=== PATIENT | female | born 1940 | race Caucasian/White ===

== ENCOUNTER 2024-06-28 07:55 | Observation (INO) | payer MEDICARE ==
[2024-06-28 08:29] LABS: #Basophils Less than 0.03 10x3/uL (0.0-0.2); %Basophils 0.4 % (0.0-1.0); %Eosinophils 2.9 % (0.0-10.0); %Lymphocytes 26.4 % (21.0-51.0); %Monocytes 7.9 % (0.0-10.0); %Neutrophils 62.2 % (42.0-75.0); Hematocrit 41.5 % (36.0-47.0); Hemoglobin 14.1 g/dL (12.0-16.0); Mean Corpuscular Volume 94.3 fL (78.0-98.0); Mean Platelet Volume 11.1 fL (7.4-10.4); Platelet Count 181 10x3/uL (130-400); RBC Distribution Width 12.4 % (11.5-14.5)
[2024-06-28 08:45] LABS: Prothrombin Time 12.7 sec (12.0-14.7)
[2024-06-28 09:00] LABS: Troponin I Less than 0.010 ng/mL (< 0.028)
[2024-06-28 09:13] LABS: PTT 20.9 sec (22.9-36.1)
[2024-06-28 09:44] LABS: ALT (SGPT) 16 U/L (8-55); AST (SGOT) 18 U/L (5-34); Albumin 3.1 g/dL (3.4-4.8); Alkaline Phosphatase 84 U/L (40-110); Anion Gap 11 mmol/L (10-20); BUN (Urea Nitrogen) 11 mg/dL (9.8-20.1); Bilirubin, Total 0.4 mg/dL (0.2-1.2); Calc. Creatinine Clearance 0 mL/min (70-130); Calcium 8.4 mg/dL (7.8-10.44); Carbon Dioxide 21 mmol/L (23-31); Chloride 104 mmol/L (98-107); Estimated GFR 68; Glucose 95 mg/dL (83-110); Potassium 3.8 mmol/L (3.5-5.1); Protein, Total 7.1 g/dL (5.8-8.1); Sodium 132 mmol/L (136-145)
[2024-06-28] MEDS ORDERED: Aspirin Chewable 81 MG TAB ONE (10:33)
[2024-06-28] MEDS ORDERED: Dextrose 50% Abboject 50 ML SYRINGE SLOW IVP PRN (12:33)
[2024-06-28] MEDS ORDERED: Glucagon 1 MG/ML KIT IM PRN (12:33)
[2024-06-28] MEDS ORDERED: Insulin Lispro 100 UNIT/ML 10 ML VIAL SC PRN ×2 (12:33)
[2024-06-28] MEDS ORDERED: Dextrose 5% in Water 1,000 ML IV PRN (12:33)
[2024-06-28] MEDS ORDERED: Iopamidol-370 76% 500 ML MDV (1 ML CHARGE) ONE (12:42)
[2024-06-28] MEDS ORDERED: Diazepam 2 MG TAB ONE (12:46)
[2024-06-28 13:17] LABS: Hemoglobin A1c 5.4 % (4.0-6.0)
[2024-06-28] MEDS: Diazepam 2 MG TAB PO SCH (13:41)
[2024-06-28] MEDS: Pyridostigmine Bromide IR 60 MG TAB PO SCH (16:36)
[2024-06-28] MEDS ORDERED: Senokot 8.6 MG TAB PO PRN (17:22)
[2024-06-28] MEDS: Polyethylene Glycol 3350 17 GM Packet PO SCH (18:21)
[2024-06-28] MEDS: Azelastine 137 MCG/NASAL Spray 30 ML NS SCH (21:17)
[2024-06-28] MEDS: Fluticasone Propionate Nasal Spray 16 gm Bottle NASAL SCH (21:17)
[2024-06-28] MEDS: Ketotifen 0.035% Ophth Soln 5 ml Bottle EA EYE SCH (21:18)
[2024-06-29] MEDS: Melatonin 3 MG TAB PO SCH (01:50)
[2024-06-29 04:16] LABS: #Basophils Less than 0.03 10x3/uL (0.0-0.2); %Basophils 0.4 % (0.0-1.0); %Eosinophils 4.1 % (0.0-10.0); %Lymphocytes 25.8 % (21.0-51.0); %Monocytes 9.3 % (0.0-10.0); %Neutrophils 60.2 % (42.0-75.0); Hematocrit 40.5 % (36.0-47.0); Hemoglobin 13.7 g/dL (12.0-16.0); Mean Corpuscular HGB CONC 33.8 g/dL (32.0-36.0); Mean Corpuscular Hemoglobin 31.7 pg (27.0-31.0); Mean Corpuscular Volume 93.8 fL (78.0-98.0); Mean Platelet Volume 11.2 fL (7.4-10.4); Platelet Count 160 10x3/uL (130-400); RBC Distribution Width 12.4 % (11.5-14.5); Red Blood Cell (RBC) Count 4.32 mill/uL (4.20-5.40)
[2024-06-29 04:50] LABS: Anion Gap 14 mmol/L (10-20); BUN (Urea Nitrogen) 10 mg/dL (9.8-20.1); Calc. Creatinine Clearance 62 mL/min (70-130); Calcium 8.8 mg/dL (7.8-10.44); Carbon Dioxide 22 mmol/L (23-31); Cardiac Risk 2.9 (Less than 4.5); Chloride 107 mmol/L (98-107); Cholesterol 151 mg/dl (< 200 Desired); Estimated GFR 70; Glucose 101 mg/dL (83-110); HDL Cholesterol 52 mg/dL (>60 Neg Risk); LDL Cholesterol, Calculated 79 mg/dL; Potassium 3.6 mmol/L (3.5-5.1); Sodium 139 mmol/L (136-145); Triglycerides 102 mg/dL (Less than 150)
[2024-06-29] MEDS: Diazepam 5 MG TAB PO PRN (06:17)
[2024-06-29] MEDS: Levothyroxine Sodium 75 MCG TAB PO SCH (06:17)
[2024-06-29] MEDS ORDERED: Venlafaxine XR 37.5 MG CAP PO SCH (09:00)
[2024-06-29] MEDS: Pantoprazole DR 40 MG TAB PO SCH (09:38)
[2024-06-29] MEDS: Aspirin Chewable 81 MG TAB PO SCH (09:38)
[2024-06-29] MEDS: Montelukast Sodium 10 mg Tablet PO SCH (09:39)
[2024-06-29] MEDS: Polyethylene Glycol 3350 17 GM Packet PO SCH (09:40)
[2024-06-29] MEDS: Mirtazapine 15 MG TAB PO SCH (09:40)
[2024-06-29] MEDS: Venlafaxine 75 MG TAB PO SCH (09:41)
[2024-06-29] MEDS: Enoxaparin 40 MG (0.4 mL) SYRINGE SC SCH (09:42)
[2024-06-29 09:46] VITALS: BMI 31.1
[2024-06-29] MEDS ORDERED: hydrOXYzine 25 MG TAB PO PRN (11:23)
[2024-06-29] MEDS ORDERED: GUAIFENESIN SF SOLN 200 MG/10 ML UDCUP PO PRN (11:29)
[2024-06-29] MEDS: hydrOXYzine 25 MG TAB PO SCH (12:27)
[2024-06-29] MEDS: Meclizine HCl 12.5 MG TAB PO SCH (12:28)
[2024-06-29 16:38] VITALS: BP 114/72; TEMP 98
== END 2024-06-29 17:51 ==
LOC: ERS 07:55 → ERHOLD 11:12 → 2SE 15:56
PROVIDERS: ADMIT Student in an Organized Health Care Education/Training Program; ATTEND Student in an Organized Health Care Education/Training Program
DX: H81.10 Benign paroxysmal vertigo, unspecified ear (principal); G70.00 Myasthenia gravis without (acute) exacerbation; F41.9 Anxiety disorder, unspecified; F32.A Depression, unspecified; J45.909 Unspecified asthma, uncomplicated; E03.9 Hypothyroidism, unspecified; Z79.899 Other long term (current) drug therapy; E87.1 Hypo-osmolality and hyponatremia; Z79.890 Hormone replacement therapy; Z96.659 Presence of unspecified artificial knee joint; Z98.890 Other specified postprocedural states; H53.8 Other visual disturbances
CPT/HCPCS: 0042T; 70450; 70496; 70498; 70551; 71045; 80048; 80061; 82962 ×2; 83036; 84484; 85025; 85610; 85730; 93005; 96372; 97116; 97530; 99285; G0378 ×3; J1650; Q9967; 36415; 36416; 80053; 84443

== ENCOUNTER 2024-07-22 14:45 | Emergency (ER) | payer MEDICARE ==
[2024-07-22] MEDS ORDERED: Lorazepam 1 MG TAB ONE (15:25)
[2024-07-22] MEDS ORDERED: hydrOXYzine 25 MG TAB ONE (15:25)
[2024-07-23] MEDS ORDERED: Privigen 10 GM, Privigen 20 GM in Admixture Fee 1 EACH IVPB ONE (04:41)
[2024-07-23] MEDS ORDERED: Privigen 20 GM, Privigen 10 GM in Admixture Fee 1 EACH IVPB SCH (04:45)
[2024-07-27 11:15] LABS: Hematocrit 42.5 % (36.0-47.0); Hemoglobin 14.8 g/dL (12.0-16.0); Mean Corpuscular Volume 91.8 fL (78.0-98.0); Red Blood Cell (RBC) Count 4.63 mill/uL (4.20-5.40); White Blood Cell (WBC) Count 5.67 10x3/uL (4.8-10.8)
[2024-07-27 11:16] LABS: #Basophils 0.02 10x3/uL (0.0-0.2); #Eosinophils 0.21 10x3/uL (0.0-0.7); #Neutrophils 3.38 10x3/uL (1.40-6.50); %Basophils 0.4 % (0.0-1.0); %Eosinophils 3.7 % (0.0-10.0); %Lymphocytes 25.4 % (21.0-51.0); %Monocytes 10.6 % (0.0-10.0); %Neutrophils 59.5 % (42.0-75.0); Mean Corpuscular HGB CONC 34.8 g/dL (32.0-36.0); Mean Platelet Volume 11.3 fL (7.4-10.4); Platelet Count 158 10x3/uL (130-400); RBC Distribution Width 12.2 % (11.5-14.5)
[2024-07-27 11:26] LABS: Amphetamine Not Detected (NotDetected); Barbiturates Screen Not Detected (NotDetected); Benzodiazepine Screen Not Detected (NotDetected); Cocaine Metabolite Screen Not Detected (NotDetected); Methadone Not Detected (NotDetected); Methamphetamine Not Detected (NotDetected); Opiate Screen Not Detected (NotDetected); Oxycodone Screen Not Detected (NotDetected); Phencyclidine (PCP) Not Detected (NotDetected); THC/Cannabinoid Screen Not Detected (NotDetected); Tricyclic Screen Not Detected (NotDetected)
[2024-07-27 11:34] LABS: ALT (SGPT) 23 U/L (8-55); AST (SGOT) 27 U/L (5-34); Acetaminophen Less than 10 mcg/mL (Less than 10); Alcohol Less than 10.0 mg/dL (Less than 10); Alkaline Phosphatase 79 U/L (40-110); Anion Gap 13 mmol/L (10-20); BUN (Urea Nitrogen) 15 mg/dL (9.8-20.1); Bilirubin, Total 0.4 mg/dL (0.2-1.2); Calc. Creatinine Clearance 0 mL/min (70-130); Calcium 8.5 mg/dL (7.8-10.44); Carbon Dioxide 22 mmol/L (23-31); Chloride 107 mmol/L (98-107); Estimated GFR 65; Globulin 3.6 g/dL (2.4-3.5); Glucose 94 mg/dL (83-110); Potassium 3.4 mmol/L (3.5-5.1); Protein, Total 6.6 g/dL (5.8-8.1); Salicylate Less than 8.0 mg/dL (Less than 8.0); Sodium 139 mmol/L (136-145)
== END 2024-07-23 17:05 ==
LOC: ERS 14:45
DX: R45.851 Suicidal ideations (principal)
CPT/HCPCS: 80306; 80307; 93005; 96365; 96366; 96375; 99285; J1459 ×2; 80053; 84443; 85025

== ENCOUNTER 2025-04-28 09:09 | Emergency (ER) | payer MEDICARE ==
[2025-04-28] MEDS ORDERED: Metoclopramide HCl 10 MG (2 mL) VIAL ONE (09:39)
[2025-04-28 10:13] LABS: #Basophils 0.03 10x3/uL (0.0-0.2); #Eosinophils 0.19 10x3/uL (0.0-0.7); #Monocytes 0.52 10x3/uL (0.11-0.59); #Neutrophils 4.98 10x3/uL (1.40-6.50); %Basophils 0.4 % (0.0-1.0); %Eosinophils 2.7 % (0.0-10.0); %Lymphocytes 18.8 % (21.0-51.0); %Monocytes 7.4 % (0.0-10.0); %Neutrophils 70.4 % (42.0-75.0); Hematocrit 43.9 % (36.0-47.0); Hemoglobin 14.7 g/dL (12.0-16.0); Mean Corpuscular Hemoglobin 30.7 pg (27.0-31.0); Mean Corpuscular Volume 91.6 fL (78.0-98.0); Platelet Count 198 10x3/uL (130-400); Red Blood Cell (RBC) Count 4.79 mill/uL (4.20-5.40); White Blood Cell (WBC) Count 7.07 10x3/uL (4.8-10.8)
[2025-04-28 10:25] LABS: ALT (SGPT) 16 U/L (Less than 34); AST (SGOT) 21 U/L (11-34); Albumin 3.5 g/dL (3.1-4.5); Alkaline Phosphatase 109 U/L (40-110); Anion Gap 14 mmol/L (10-20); BUN (Urea Nitrogen) 8 mg/dL (9.8-20.1); Bilirubin, Total 0.6 mg/dL (0.3-1.2); Calc. Creatinine Clearance 0 mL/min (70-130); Calcium 8.9 mg/dL (7.8-10.44); Carbon Dioxide 22 mmol/L (23-31); Chloride 109 mmol/L (98-107); Globulin 2.5 g/dL (2.4-3.5); Glucose 110 mg/dL (83-110); Lipase 13 U/L (8-78); Magnesium 2.1 mg/dL (1.6-2.6); Potassium 3.9 mmol/L (3.5-5.1); Sodium 141 mmol/L (136-145)
[2025-04-28 12:10] LABS: Bacteria/HPF None Seen HPF (None Seen); CAUTI Indications for Culture Pelvic or flank pain; Glucose, Urine (Dipstick) Normal (Negative); Leukocyte 250 Leu/uL (Negative); Protein, Urine (Dipstick) Negative (Neg-Trace); RBC/HPF 0-3 HPF (0-3); Specific Gravity, Urine 1.012 (1.002-1.036); WBC/HPF 21-50 HPF (0-3)
[2025-04-28 12:19] LABS: Urine Culture Reflex Yes Yes
== END 2025-04-28 12:38 | disposition home or self-care (01) ==
LOC: ERS 09:09
DX: K80.20 Calculus of gallbladder without cholecystitis without obstruction (principal); N39.0 Urinary tract infection, site not specified; K21.9 Gastro-esophageal reflux disease without esophagitis; E03.9 Hypothyroidism, unspecified; Z79.82 Long term (current) use of aspirin
CPT/HCPCS: 71045; 76705; 80053; 81001; 83690; 83735; 84484; 85025; 87086; 93005; J2765; 96374

== ENCOUNTER 2025-08-12 10:09 | Outpatient (CLI) | payer MEDICARE | END 2025-08-12 10:10 | disposition home or self-care (01) | LOC: BICMAMMO 10:09 | PROVIDERS: ATTEND Family Medicine | DX: Z12.31 Encounter for screening mammogram for malignant neoplasm of breast (principal); M85.80 Other specified disorders of bone density and structure, unspecified site | CPT/HCPCS: 77063; 77067 ==